=== PATIENT | male | born 1965 | race Caucasian/White ===

== ENCOUNTER 2021-05-01 09:00 | Outpatient (RCR) | payer BC, SELFPAY ==
--- NOTE | 2021-03-31 16:17 | PTOPEVAL ---
Thank you for referring Christo Zambrano to [facility].? The patient is scheduled to be seen for therapy? ____x/week for ___ weeks. Please review, sign, date and return this plan of care MASHA. I agree with and certify that the following plan of care is medically necessary. Referring Physician Date Admitting Provider: Attending Provider: Edward Saravia, MD Referring Provider: *PT Outpatient Evaluation Start: 03/31/21 10:59 Freq: Status: Active Protocol: Document 03/31/21 11:02 ACR (Rec: 03/31/21 11:59 [facility] [id number]) Therapy Assessment Status Assessment Status Assessment Status Evaluation Evaluation Information Problem Diagnosis CVA Onset 05/15/20 Subjective Information Patient states that he had a Query Text:As Reported By Patient/ stroke and COVID around the Family same time last year. He states he was in the hospital for 2 months. Patient states that he did inpatient rehab for 2 weeks after his hospitalization. He states that his stroke has effected the L side. Patient states that he was walking with a walker, but was getting an home health who took the walker from him. Patient states that writing, walking/ standing for a period of time are difficult for him and he lacks endurance. Patient states that he has had 3 falls in the past year where he did not have his walker. He has difficulty with walking on uneven terrain. Patient has 7- 8 steps to get into the home and utilizes a handrail and has some difficulty. He states he has steps to go to the basement and only goes down them periodically and goes down them backwards and up forwards. Patient states that his goal for therapy is to be independent. Prior Level of Function Activity Level (Last 3 Months) Occupation disabled Hand Dominance Right Activity of Daily Living Ability Needs Some Help Indoor/Home Mobility Need
--- NOTE | 2021-04-14 11:00 | OTOPEVAL ---
Thank you for referring Christo Zambrano to [facility].? The patient is scheduled to be seen for therapy? ____x/week for ___ weeks. Please review, sign, date and return this plan of care MASHA. I agree with and certify that the following plan of care is medically necessary. Referring Physician Date Admitting Provider: Attending Provider: Edward Saravia, MD Referring Provider: *OT Outpatient Evaluation Start: 04/14/21 08:22 Freq: Status: Active Protocol: Document 04/14/21 09:54 [facility] (Rec: 04/14/21 10:59 [facility] [id number]) Therapy Assessment Status Assessment Status Assessment Status Evaluation Evaluation Information Problem Diagnosis R side weakness Onset 05/15/21 Cause CVA Subjective Information Patient reports that his R Query Text:As Reported By Patient/ side was affected with the CVA Family that he had on 05/15/21. Patient states that he was in the hospital for ~ 3 months. Patient states that he is right handed and it is very difficult to perform eating and writing. 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 Hand Dominance Right Activity of Daily Living Ability Independent Indoor/Home Mobility Independent Community Mobility Independent Stairs Ability Independent Functional Cognition (Planning, Shopping Independent , Taking Medications) Cooking Yes Cleaning Yes Laundry Yes Shopping Yes Driving Yes Pain Assessment Timing of Pain Assessment Timing of Pain Assessment Assessment Self Report Self Report Pain Level 0 Pain Score Pain Score 0: Self Report Upper Extremity Range of Motion General Upper Extremity Range of Motion Reason Not Measured WFL/Left,WFL/Right Upper Extremity Muscle Strength Testing General Upper Extremity Strength Reason Not Measured WFL/Left,WFL/Right Scapular/Shoulder Right Shoulder Flexion Strength 4+ Good + Shoulder Abduction Strength 4+ Good + Left Shoulder Flexion Strength 4+ Good + Shoulder Abduction Strength 4+ Good + Elbow/Forearm Right Elbow Flexion Strength 4+ Good + Elbow Extension Strength 4+ Good + Left Elbow Flexion Strength
--- NOTE | 2021-05-01 11:39 | PCSTNOTE ---
On 05/01/21, the student, [Cora Darnell], provided care and completed [facility] documentation on this patient. I have reviewed the student's documentation and agree with the findings.
--- NOTE | 2021-05-01 11:45 | STOPEVAL ---
Thank you for referring Christo Zambrano to [facility].? The patient will not be seen for therapy?due to currently presenting at his prior level of function. Please review, sign, date and return this plan of care MASHA. I agree with and certify that the following plan of care is medically necessary. Referring Physician Date Admitting Provider: Attending Provider: Edward Saravia, Referring Provider: SUSHMA Outpatient Evaluation Start: 05/01/21 10:17 Freq: Status: Active Protocol: Document 05/01/21 09:00 [facility] (Rec: 05/01/21 11:22 [facility] [id number]) Therapy Assessment Status Assessment Status Assessment Status Evaluation Outpatient Past Medical History Past Medical History Source of Past Medical History Patient Neurological History Hx Cerebrovascular Accident (CVA) Yes: November 2019 and April Cardiovascular History Hx Coronary Stent Yes Hx Hypertension Yes Hx Myocardial Infarction Yes Hx Other Cardiac Disorders Yes Gastrointestinal History Hx Hernia Yes Musculoskeletal History Hx Crutches or Walker Use Yes: Use of a two-wheel walker Query Text:If Yes, Enter Crutches, Walker, or Both in the Comment Endocrine History Hx Diabetes Yes HEENT History Hx Eye Surgery Yes Evaluation Information Problem Diagnosis Aphasia Onset 05/15/20 Cause CVA Subjective Information Patient reports that his R Query Text:As Reported By Patient/ side was affected with the CVA Family that he had on 05/15/20. Patient states that he was in the hospital for ~ 3 months. Patient states that he received speech therapy while in the hospital and they targeted his speech intelligibility. He stated his still sometimes cannot understand him. 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
--- NOTE | 2021-06-12 15:03 | PTOPEVAL ---
Thank you for referring Christo Zambrano to [facility].? The patient is scheduled to be seen for therapy? ____x/week for ___ weeks. Please review, sign, date and return this plan of care MASHA. I agree with and certify that the following plan of care is medically necessary. Referring Physician Date Admitting Provider: Attending Provider: Edward Saravia, MD Referring Provider: *PT Outpatient Evaluation Start: 03/31/21 10:59 Freq: Status: Active Protocol: Document 06/12/21 13:55 A[facility] (Rec: 06/12/21 15:02 [facility] [id number]) Therapy Assessment Status Assessment Status Assessment Status Progress Outpatient Past Medical History Past Medical History Source of Past Medical History Patient Neurological History Hx Cerebrovascular Accident (CVA) Yes: November 2019 and April Cardiovascular History Hx Coronary Stent Yes Hx Hypertension Yes Hx Myocardial Infarction Yes Hx Other Cardiac Disorders Yes Gastrointestinal History Hx Hernia Yes Musculoskeletal History Hx Crutches or Walker Use Yes: Use of a two-wheel walker Query Text:If Yes, Enter Crutches, Walker, or Both in the Comment Endocrine History Hx Diabetes Yes HEENT History Hx Eye Surgery Yes Evaluation Information Problem Diagnosis CVA Onset 05/15/20 Subjective Information Patient states that he feels Query Text:As Reported By Patient/ about the same since starting Family therapy. He states that he has difficulty with steps, walking on level and uneven terrain. Pain Assessment Timing of Pain Assessment Timing of Pain Assessment Assessment Self Report Self Report Pain Level 0 Pain Score Pain Score 0: Self Report Lower Extremity Muscle Strength Testing Hip Strength Right Hip Flexion Strength 4+ Good + Left Hip Flexion Strength 5 Normal Knee Strength Right Knee Flexion Strength 4 Good Knee Extension Strength 4+ Good + Left Knee Flexion Strength 4+ Good + Balance Assessment Tinetti Balance Assessment Sitting Balance Steady, safe Ability to Arise Able, w/o using arms Attempts to Arise Arises on 1st attempt Immediate Standing Balance Steady w/o support Standing Balance Steady, wide stance Nudged Response Begins to fall Standing with Eyes Closed Steady Step Pattern Turning 360 Degrees Continuous steps Stability Turning 360 Degrees Steady Sitting Down Safe, steady Initiation of Gait
--- NOTE | 2021-09-22 16:54 | PCOTNOTE ---
Patient was seen for 5 OT sessions and has not been seen since 06/12/21. Patient has cancelled multiple appointments and has not attempted to reschedule. See patient's last treatment note for functional status at time of discharge. MS
== END 2021-06-12 23:59 | disposition home or self-care (01) ==
LOC: CHSST 09:00
PROVIDERS: Visit Provider Family Medicine
DX: R53.1 Weakness (principal); I69.991 Dysphagia following unspecified cerebrovascular disease
CPT/HCPCS: 92523; 97110; 97112; 97116; 97161; 97165; 97530

== ENCOUNTER 2021-12-30 13:46 | Outpatient (CLI) | payer MEDICARE, MEDICAID, SELFPAY | END 2021-12-30 13:47 | disposition home or self-care (01) | LOC: CHSAUDIO 13:49 | PROVIDERS: PCP Family Medicine; Visit Provider Family Medicine | DX: H91.91 Unspecified hearing loss, right ear (principal) | CPT/HCPCS: 92557; 92567 ==

== ENCOUNTER 2022-02-01 12:06 | Outpatient (CLI) | payer MEDICARE, MEDICAID, SELFPAY ==
--- NOTE | 2022-02-01 12:08 | EST_ITS ---
Patient Info Name: Christo Zambrano Age: 56 years : 1965 Gender: Male Ht: 65 in Wt: 150 lbs BSA: 1.78 m2 Exam Date: 02/01/2022 1:44 PM Exam Location: [facility] Patient Status: Outpatient Admit Date: 02/01/2022 Staff Ordering Physician: Chase Shepard DO Attending Provider: Chase Shepard DO Exam Type: CA stress rachel w NM Summary 1. 1. Negative lexiscan stress test for ischemic ST changes by ECG criteria. 2. 2. Stable hemodynamics throughout the test. 3. 3. Nuclear scan to follow and will be reported separately. Please correlate with it. 4. 4. Patient informed of the above results. Protocol: LEXISCAN Stress ECG Details Stage: REST Duration (min): 1 min : 11 sec HR (bpm): 74 SBP (mmHg): 119 DBP (mmHg): 91 Stage: REST Duration (min): 7 min : 39 sec HR (bpm): 72 SBP (mmHg): 119 DBP (mmHg): 91 Stage: STAGE 1 Duration (min): 0 min : 12 sec HR (bpm): 75 SBP (mmHg): 119 DBP (mmHg): 91 Stage: RECOVERY Duration (min): 0 min : 47 sec HR (bpm): 88 SBP (mmHg): 119 DBP (mmHg): 91 Stage: RECOVERY Duration (min): 1 min : 47 sec HR (bpm): 91 SBP (mmHg): 131 DBP (mmHg): 82 Stage: RECOVERY Duration (min): 2 min : 47 sec HR (bpm): 89 SBP (mmHg): 128 DBP (mmHg): 81 Stage: RECOVERY Duration (min): 3 min : 47 sec HR (bpm): 82 SBP (mmHg): 135 DBP (mmHg): 84 Stage: RECOVERY Duration (min): 4 min : 47 sec HR (bpm): 88 SBP (mmHg): 133 DBP (mmHg): 85 Stage: RECOVERY Duration (min): 5 min : 47 sec HR (bpm): 84 SBP (mmHg): 130 DBP (mmHg): 84 Stage: RECOVERY Duration (min): 6 min : 3 sec HR (bpm): 81 SBP (mmHg): 130 DBP (mmHg): 84 Rest HR: 72 bpm Peak HR: 92 bpm Rest Sys BP: 119 mmHg Peak Sys BP: 135 mmHg Max Pred HR: 163 bpm % Max Pred HR: 56 % Target HR: 139 bpm Max RPP: 12,420 bpm*mmHg Termination Reason: Completed protocol Cardiac Symptoms: Shortness of breath Total Time: 0 min : 12 sec Rest Pfeiffer BP: 91 mmHg Peak Pfeiffer BP: 84 mmHg Total Dose: 0.4 mg Resting ECG Sinus rhythm. Stress ECG No ST changes. Arrhythmias None. Report Signatures
--- NOTE | 2022-02-01 17:40 | WPDCARIOSTRE ---
Nuclear Stress Test PROCEDURE Procedure Performed: Myocardial Perf Spect-Multi Procedure: Patient underwent a lexiscan stress test and immediately was injected with 34.0 mCi of cardiolyte. Multiple tomographic images were obtained. These are of good quality. There is no evidence of perfusion defects with stress imaging. A separate resting images were obtained after patient was injected with 10.1 mCi of cardiolyte. Multiple tomographic images were obtained. These are of good quality. There is no evidence of perfusion defects with rest imaging. CONCLUSION Conclusion: 1. Normal myocardial perfusion imaging demonstrating no perfusion defects with stress or rest imaging. 2. No reversible ischemia. 3. Left ventriculogram demonstrates normal measured ejection fraction of 53%. No wall motion abnormalities. 4. TID score of 1 is normal.
== END 2022-02-01 12:07 | disposition home or self-care (01) ==
LOC: CHSIMG 12:08
PROVIDERS: PCP Family Medicine; Visit Provider Internal Medicine Cardiovascular Disease
DX: R06.09 Other forms of dyspnea (principal)
CPT/HCPCS: 78452; 93017; A9502; J2785